=== PATIENT | female | born 1985 | race Caucasian/White ===

== ENCOUNTER 2016-11-16 19:42 | Emergency (ER) | payer OTHER ==
[2016-11-16 19:59] VITALS: BP 143/92; PULSE 88; TEMP 98.1; BMI 36.5
[2016-11-16 20:40] LABS: URINE APPEARANCE CLEAR; URINE BILIRUBIN NEGATIVE (NEGATIVE); URINE BLOOD 2+ (NEGATIVE); URINE COLOR LTYELLOW; URINE GLUCOSE (UA) NEGATIVE (NEGATIVE); URINE KETONE NEGATIVE (NEGATIVE); URINE LEUK ESTERASE NEGATIVE (NEGATIVE); URINE NITRITE NEGATIVE (NEGATIVE); URINE PROTEIN NEGATIVE (NEGATIVE); URINE UROBILINOGEN NEGATIVE mg/dL (0.2-1.0)
[2016-11-16 20:54] LABS: URINE MUCUS RARE; URINE RBC <1 /hpf (0-3)
--- NOTE | 2016-11-16 21:25 | PDOC ---
History of Present Illness - General History Source: Patient Exam Limitations: No Limitations - History of Present Illness Initial Comments: 11/16/16 21:36 The patient is a 31 year old female, with a significant past medical history of Kidney stones, Anxiety, depression who presents to the emergency department with lower abdominal and back pain for the past day. Patient reports crampy abdominal pain with no associated symptoms. Patient reports to taking several urine tests with positive and negative results. Patient also reports vaginal bleeding. Patient denies taking any pain medications for relief. She denies chest pain, headache or dizziness. She denies fever, chills, nausea, vomit, diarrhea or constipation. She denies dysuria, frequency, urgency or hematuria. Allergies: NKA Past surgical history: C section Social history: None PCP: Amira Michael <Marietta Kapadia - Last Filed: 11/16/16 21:36> - General History Source: Patient <Juan CarlosRomario escalante - Last Filed: 11/17/16 00:07> - General Chief Complaint: Pain Stated Complaint: VAGINAL BLEEDING Time Seen by Provider: 11/16/16 21:24 Past History <Marietta Kapadia - Last Filed: 11/16/16 21:36> - Past Medical History Anemia: No Asthma: No Cancer: No Cardiac Disorders: No CVA: No COPD: No CHF: No Dementia: No Diabetes: No GI Disorders: No Disorders: Yes (KIDNEY STONES) HTN: No Hypercholesterolemia: No Liver Disease: No Psychiatric Problems: Yes (Depression, anxiety) Seizures: No Thyroid Disease: No - Surgical History Abdominal Surgery: No - Reproductive History (#): 4 Para: 3 Therapeutic (s) & number: No - Immunization History Immunization Up to Date: No - Suicide/Smoking/Psychosocial Hx Smoking Status: No Smoking History: Never smoked Have you smoked in the past 12 months: No Number of Cigarettes Smoked Daily: 0 Information on smoking cessation initiated: No Hx Alcohol Use: No Drug/Substance Use Hx: No Substance Use Type: None Hx Substance Use Treatment: No <Romario Lee - Last Filed: 11/17/16 00:07> - Past Medical History Allergies/Adverse Reactions: Allergies Allergy/AdvReac Type Severity Reaction Status Date / Time No Known Drug Allergies Allergy Verified 11/16/16 19:55 Home Medications: Ambulatory Orders Bupropion HCl [Wellbutrin -] 150 mg PO DAILY 01/17/15 Acetaminophen W/ Codeine #3 [Tylenol # 3 -] 1 tab PO Q6H #20 tablet 01/20/15 Antibiotic(Not Sure Of Name) PO BID 01/20/15 Review of Systems - Review of Systems Able to Perform ROS?: Yes Comments:: 11/16/16 21:36 GENERAL/CONSTITUTIONAL: No fever or chills. No weakness. HEAD, EYES, EARS, NOSE AND THROAT: No change in vision. No ear pain or discharge. No sore throat. GASTROINTESTINAL: No nausea, vomiting, diarrhea or constipation. GENITOURINARY: +lower abdominal pain. No dysuria, frequency, or change in urination. CARDIOVASCULAR: No chest pain or shortness of breath. RESPIRATORY: No cough, wheezing, or hemoptysis. MUSCULOSKELETAL: No joint or muscle swelling or pain. No neck pain. + back pain. SKIN: No rash NEUROLOGIC: No headache, vertigo, loss of consciousness, or change in strength/ sensation. ENDOCRINE: No increased thirst. No abnormal weight change. HEMATOLOGIC/LYMPHATIC: No anemia, easy bleeding, or history of blood clots. ALLERGIC/IMMUNOLOGIC: No hives or skin allergy. <Marietta Kapadia - Last Filed: 11/16/16 21:36> *Physical Exam - Vital Signs Last Vital Signs Temp Pulse Resp BP Pulse Ox 98.1 F 88 19 143/92 100 11/16/16 19:55 11/16/16 19:55 11/16/16 19:55 11/16/16 19:55 11/16/16 19:55 - Physical Exam Comments: 11/16/16 21:36 GENERAL: Awake, alert, and fully oriented, in no acute distress HEAD: No signs of trauma EYES: PERRLA, EOMI, sclera anicteric, conjunctiva clear ENT: Auricles normal inspection, hearing grossly normal, nares patent, oropharynx clear without exudates. Moist mucosa NECK: Normal ROM, supple, no lymphadenopathy, JVD, or masses LUNGS: Breath sounds equal, clear to auscultation bilaterally. No wheezes, and no crackles HEART: Regular rate and rhythm, normal S1 and S2, no murmurs, rubs or gallops ABDOMEN: +suprapubic tenderness. Soft, normoactive bowel sounds. No guarding, no rebound. No masses EXTREMITIES: Normal range of motion, no edema. No clubbing or cyanosis. No cords, erythema, or tenderness NEUROLOGICAL: Cranial nerves II through XII grossly intact. Normal speech, normal gait SKIN: Warm, Dry, normal turgor, no rashes or lesions noted. <Marietta Kapadia - Last Filed: 11/16/16 21:36> - Vital Signs Last Vital Signs Temp Pulse Resp BP Pulse Ox 98.1 F 88 19 143/92 100 11/16/16 19:55 11/16/16 19:55 11/16/16 19:55 11/16/16 19:55 11/16/16 19:55 <Romario Lee - Last Filed: 11/17/16 00:07> ED Treatment Course - ADDITIONAL ORDERS Additional order review: Laboratory Results 11/16/16 20:10 Urine Color Ltyellow Urine Appearance Clear Urine pH 6.0 Urine Protein Negative Urine Glucose (UA) Negative Urine Ketones Negative Urine Blood 2+ H Urine Nitrite Negative Urine Bilirubin Negative Urine Urobilinogen Negative Urine RBC <1 Urine WBC None Ur Epithelial Cells Rare Urine Mucus Rare Urine HCG, Qual Negative <Marietta Kapadia - Last Filed: 11/16/16 21:36> - LABORATORY CBC & Chemistry Diagram: 11/16/16 21:50 11/16/16 21:50 - ADDITIONAL ORDERS Additional order review: Laboratory Results 11/16/16 20:10 Urine Color Ltyellow Urine Appearance Clear Urine pH 6.0 Urine Protein Negative Urine Glucose (UA) Negative Urine Ketones Negative Urine Blood 2+ H Urine Nitrite Negative Urine Bilirubin Negative Urine Urobilinogen Negative Urine RBC <1 Urine WBC None Ur Epithelial Cells Rare Urine Mucus Rare Urine HCG, Qual Negative <Romario Lee - Last Filed: 11/17/16 00:07> Medical Decision Making - Medical Decision Making 11/17/16 00:06 Dr. Lee: The scribe's documentation has been prepared under my direction and personally reviewed by me in its entirery. I confirm that the note above accurately reflects all work, treatment, procedures, and medical decision making performed by me. <Romario Lee - Last Filed: 11/17/16 00:07> *DC/Admit/Observation/Transfer - Attestations Scribe Attestion: 11/16/16 21:36 Documentation prepared by Marietta Kapadia, acting as medical records auditor for Romario Lee DO. <Mairetta Kapadia - Last Filed: 11/16/16 21:36> - Discharge Dispostion Admit: No <Romario Lee - Last Filed: 11/17/16 00:07> Diagnosis at time of Disposition: Vaginal bleeding Qualifiers: Weeks of gestation: less than 8 weeks Qualified Code(s): Z3A.01 - Less than 8 weeks gestation of - Discharge Dispostion Disposition: HOME Condition at time of disposition: Stable - Referrals Referrals: Amira Michael MD [Primary Care Provider] - Latrice Sheriff MD [Staff Physician] - - Patient Instructions Printed Discharge Instructions: Medications and Additional Instructions: Please follow up with your house worker to continue evaluating
[2016-11-16] MEDS ORDERED: ACETAMINOPHEN 325 MG TABLET (FP) PO ONE (21:30)
[2016-11-16] MEDS ORDERED: ACETAMINOPHEN 325 MG TABLET (FP) ONE (21:36)
[2016-11-16 21:55] LABS: EOSINOPHIL 4.8 % (0-4.5); MCH 26.5 pg (25.7-33.7); MCHC 33.1 g/dl (32.0-36.0); MEAN CELL VOLUME 80.1 fl (80-96); MEAN PLT VOLUME 7.5 fl (7.5-11.1); NEUTROPHILS 58.2 % (42.8-82.8); PLATELET COUNT 307 K/MM3 (134-434); RDW 14.3 % (11.6-15.6); WHITE BLOOD COUNT 11.6 K/mm3 (4.0-10.0)
[2016-11-16 22:26] LABS: ANION GAP 8 (8-16); CO2 22 mmol/L (21-32); CREATININE 0.8 mg/dL (0.55-1.02); GLUCOSE,RANDOM 84 mg/dL (74-106)
== END 2016-11-16 23:45 | disposition home or self-care (01) ==
LOC: JER 19:42
DX: O20.8 Other hemorrhage in early pregnancy (principal); Z3A.01 Less than 8 weeks gestation of pregnancy
CPT/HCPCS: 36415; 76817-TC; 80048; 81003; 81015; 84702; 84703; 85025; 87086; 99282-25

== ENCOUNTER 2016-11-18 17:18 | Emergency (ER) | payer OTHER ==
[2016-11-18 17:22] VITALS: BMI 32.8
--- NOTE | 2016-11-18 17:37 | PDOC ---
History of Present Illness - General History Source: Patient Exam Limitations: No Limitations - History of Present Illness Travel History: No Initial Comments: 11/18/16 17:37 31 yr female presents with heavy vaginal bleeding and intermittent cramping seen in ER 11/16/16 for low back and abd pain. Pt states this am bleeding has increased. LMP 10/12/16 . 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: 11/18/16 17:39 <Lynette Wang - Last Filed: 11/18/16 18:49> <Rosalind Gil - Last Filed: 11/18/16 20:00> - General Chief Complaint: Vaginal Bleeding Stated Complaint: VAGINAL BLEEDING ()LMP 10/12 Time Seen by Provider: 11/18/16 17:28 Past History - Past Medical History Anemia: No Asthma: No Cancer: No Cardiac Disorders: No CVA: No COPD: No CHF: No Dementia: No Diabetes: No GI Disorders: No Disorders: Yes (KIDNEY STONES) HTN: No Hypercholesterolemia: No Liver Disease: No Psychiatric Problems: Yes (Depression, anxiety) Seizures: No Thyroid Disease: No Other medical history: OBESITY - Surgical History Abdominal Surgery: No - Reproductive History LMP Normal: (10/12/16 ) Is Patient Now?: Yes (#): 5 Para: 4 Cervical CA: No Dysfunctional Uterine Bleeding: No Ectopic : No Endometrial CA: No Endometriosis: No Ovarian CA: No PID: No Polycystic Ovaries: No Therapeutic (s) & number: No Tubal Ligation: No Uterine Fibroids: No Oophorectomy: No - Immunization History Immunization Up to Date: No - Suicide/Smoking/Psychosocial Hx Smoking Status: No Smoking History: Never smoked Have you smoked in the past 12 months: No Number of Cigarettes Smoked Daily: 0 Information on smoking cessation initiated: No Hx Alcohol Use: No Drug/Substance Use Hx: No Substance Use Type: None Hx Substance Use Treatment: No <Lynette Wang - Last Filed: 11/18/16 18:49> <Rosalind Gil - Last Filed: 11/18/16 20:00> - Past Medical History Allergies/Adverse Reactions: Allergies Allergy/AdvReac Type Severity Reaction Status Date / Time No Known Drug Allergies Allergy Verified 11/18/16 17:22 Home Medications: Ambulatory Orders Cephalexin Monohydrate [Keflex -] 500 mg PO BID #14 capsule 11/18/16 Abd/GI Specific PMHX - Complaint Specific PMHX GI Ulcer Disease: No <Lynette Wang - Last Filed: 11/18/16 18:49> Review of Systems - Review of Systems Able to Perform ROS?: Yes Is the patient limited Nepali proficient: No Constitutional: No: Symptoms Reported HEENTM: No: Symptoms Reported Respiratory: No: Symptoms reported Cardiac (ROS): No: Symptoms Reported ABD/GI: No: Symptoms Reported : Yes: Other (vaginal bleeding with clots ). No: Symptoms Reported Musculoskeletal: No: Symptoms Reported Integumentary: No: Symptoms Reported Neurological: No: Symptoms reported <Lynette Wang - Last Filed: 11/18/16 18:49> *Physical Exam - Vital Signs Last Vital Signs Temp Pulse Resp BP Pulse Ox 98.3 F 100 H 18 146/78 100 11/18/16 17:21 11/18/16 17:21 11/18/16 17:11/18/16 17:21 11/18/16 17:21 - Physical Exam General Appearance: Yes: Nourished, Appropriately Dressed HEENT: positive: EOMI, DAVID, Normal ENT Inspection Neck: positive: Supple Respiratory/Chest: positive: Lungs Clear, Normal Breath Sounds, Other (holter monitor in place) Cardiovascular: positive: Regular Rhythm, Regular Rate Female Pelvic Exam: positive: vaginal bleeding Gastrointestinal/Abdominal: positive: Normal Bowel Sounds, Soft. negative: Tender Musculoskeletal: positive: Normal Inspection Extremity: positive: Normal Capillary Refill, Normal Inspection, Normal Range of Motion Integumentary: positive: Normal Color, Dry, Warm Neurologic: positive: Fully Oriented, Alert, Normal Mood/Affect, Normal Response , Motor Strength 5/5 <Lynette Wang - Last Filed: 11/18/16 18:49> - Vital Signs Last Vital Signs Temp Pulse Resp BP Pulse Ox 98.3 F 100 H 18 146/78 100 11/18/16 17:21 11/18/16 17:21 11/18/16 17:21 11/18/16 17:11/18/16 17:21 - Physical Exam Female Pelvic Exam: positive: normal external exam, cervical os closed, normal adnexa, vaginal bleeding (Moderate dark blood.), other (Possible products of conception noted outside vaginal canal, appeared at labia minor during speculum insertion.). negative: CMT, discharge, adnexal tenderness Gastrointestinal/Abdominal: positive: Normal Bowel Sounds, Soft. negative: Distended, Guarding, Rebound, Tenderness <Rosalind Gil - Last Filed: 11/18/16 20:00> ED Treatment Course - LABORATORY CBC & Chemistry Diagram: 11/18/16 18:00 - RADIOLOGY Radiology Studies Ordered: Category Date Time Status TRANSVAGINAL US PREG [US] Stat Ultrasound 11/18/16 17:28 Ordered <Lynette Wang - Last Filed: 11/18/16 18:49> - LABORATORY CBC & Chemistry Diagram: 11/18/16 18:00 - ADDITIONAL ORDERS Additional order review: Laboratory Results 11/18/16 11/18/16 11/18/16 18:19 18:00 18:00 PT with INR INR Beta HCG, Quant 4.3 Urine Color Yellow Urine Appearance Slcloudy Urine pH 5.0 Urine Protein Negative Urine Glucose (UA) Negative Urine Ketones Negative Urine Blood 3+ H Urine Nitrite Negative Urine Bilirubin Negative Urine Urobilinogen Negative Urine RBC 401 Urine WBC 45 Ur Epithelial Cells Rare Urine Mucus Rare Blood Type O POSITIVE Antibody Screen Negative 11/18/16 18:00 PT with INR 10.50 INR 0.96 Beta HCG, Quant Urine Color Urine Appearance Urine pH Urine Protein Urine Glucose (UA) Urine Ketones Urine Blood Urine Nitrite Urine Bilirubin Urine Urobilinogen Urine RBC Urine WBC Ur Epithelial Cells Urine Mucus Blood Type Antibody Screen 11/18/16 18:00 RBC 5.09 MCV 80.5 MCHC 32.6 RDW 13.9 MPV 7.8 Neutrophils % 59.8 Lymphocytes % 26.7 Monocytes % 7.8 Eosinophils % 4.5 Basophils % 1.2 - Medications Given in the ED: ED Medications Discontinued Medications Generic Name Dose Route Start Last Admin Trade Name Freq PRN Reason Stop Dose Admin Acetaminophen 650 mg 11/18/16 17:42 11/18/16 18:29 Tylenol - PO 11/18/16 17:43 650 mg ONCE ONE Administration <Rosalind Gil - Last Filed: 11/18/16 20:00> Medical Decision Making - Medical Decision Making 11/18/16 17:42 cc: heavy vaginal bleeding LMP 10/12/16 will check labs repeat US tylenol for pain pt is stable 11/18/16 18:19 11/18/16 18:49 pt endorsed to BIOMASS PRODUCTION MANAGER Miguel Gil. labs pending dispo pending. <Lynette Wang - Last Filed: 11/18/16 18:49> - Medical Decision Making 11/18/16 19:52 Patient Beta HCG levels down from 18-4. Speculum exam: Possible products of conception outside vaginal canal. Cervix os closed with moderate dark blood in canal. No abdominal pain on palpation. No CMT or Adnexa pain on bimanual exam. Very low suspicion for ectopic . Transvaginal US cancelled based on my findings. <Rosalind Gil - Last Filed: 11/18/16 20:00> *DC/Admit/Observation/Transfer <Lynette Wang - Last Filed: 11/18/16 18:49> - Discharge Dispostion Admit: No <Rosalind Gil - Last Filed: 11/18/16 20:00> Diagnosis at time of Disposition: Miscarriage - Discharge Dispostion Disposition: HOME Condition at time of disposition: Stable - Prescriptions Prescriptions: Cephalexin Monohydrate [Keflex -] 500 mg PO BID #14 capsule - Patient Instructions Printed Discharge Instructions: DI for Miscarriage Additional Instructions: Follow up with your GIS SOFTWARE DEVELOPER for further evaluation. Call to schedule appointment. Take medications as prescribed. Return if you experience severe abdominal pain, cramping with increase bleeding identified by (changing of pads hourly or sooner), if you develop fever, nausea, vomiting, or any other concerns for further evaluation. Print Language: URDU
[2016-11-18] MEDS ORDERED: ACETAMINOPHEN 325 MG TABLET (FP) PO ONE (17:42)
[2016-11-18] MEDS ORDERED: ACETAMINOPHEN 325 MG TABLET (FP) ONE (18:26)
[2016-11-18 18:27] LABS: URINE APPEARANCE SLCLOUDY; URINE BILIRUBIN NEGATIVE (NEGATIVE); URINE BLOOD 3+ (NEGATIVE); URINE COLOR YELLOW; URINE GLUCOSE (UA) NEGATIVE (NEGATIVE); URINE KETONE NEGATIVE (NEGATIVE); URINE NITRITE NEGATIVE (NEGATIVE); URINE PROTEIN NEGATIVE (NEGATIVE); URINE UROBILINOGEN NEGATIVE mg/dL (0.2-1.0)
[2016-11-18 18:28] LABS: URINE LEUK ESTERASE 1+ (NEGATIVE)
[2016-11-18 18:36] LABS: BASOPHIL 1.2 % (0-2.0); EOSINOPHIL 4.5 % (0-4.5); MCH 26.3 pg (25.7-33.7); MCHC 32.6 g/dl (32.0-36.0); MEAN CELL VOLUME 80.5 fl (80-96); MEAN PLT VOLUME 7.8 fl (7.5-11.1); NEUTROPHILS 59.8 % (42.8-82.8); PLATELET COUNT 337 K/MM3 (134-434); RDW 13.9 % (11.6-15.6); WHITE BLOOD COUNT 11.4 K/mm3 (4.0-10.0)
[2016-11-18 18:43] LABS: URINE MUCUS RARE; URINE RBC 401 /hpf (0-3); URINE WBC 45 /hpf (3-5)
[2016-11-18 18:55] LABS: INR 0.96 (0.82-1.09); PROTHROMBIN TIME (PATIENT) 10.5 SEC (9.98-11.88)
[2016-11-18] MEDS ORDERED: CEPHALEXIN MONOHYDRATE 500 MG CAPSULE (UD) PO ONE (19:55)
[2016-11-18] MEDS ORDERED: CEPHALEXIN MONOHYDRATE 250 MG CAPSULE (FP) ONE (20:14)
[2016-11-18 20:31] VITALS: BP 137/86; PULSE 86; TEMP 98.2
--- NOTE | 2016-11-22 17:24 | PATH ---
Surgical Pathology Report Patient Name: SYLVESTER PUGA [facility]. Rec. #: [id number] /Age/Gender: 1985 (Age: 31) / F Account: [id number] Location: EMERGENCY ROOM Taken: 11/18/2016 Received: 11/19/2016 Reported: 11/22/2016 Physicians: Nabeel Lovett M.D. Specimen(s) Received PRODUCTS OF CONCEPTION Clinical History Vaginal bleeding Final Diagnosis UTERINE CONTENTS, EVACUATION: DECIDUA AND HYPERSECRETORY ENDOMETRIUM. NO CHORIONIC VILLI OR TROPHOBLASTS IDENTIFIED. Comment: This report was faxed to Dr. Gan's office on 11/22/2016. Electronically Signed Bryon Palomares M.D. Gross Description Received in formalin, labeled with the patient's name and indicated on her physician to be products of conception, is a 2.7 x 1.7 x 0.2 cm aggregate of trevino brown soft tissue fragments. Possible villous tissue is identified. No somatic tissue is identified. The specimen is entirely submitted in one cassette. /11/19/2016 [facility]11/19/2016
== END 2016-11-18 20:25 | disposition home or self-care (01) ==
LOC: JER 17:18
DX: O26.891 Other specified pregnancy related conditions, first trimester (principal); O02.1 Missed abortion; Z3A.01 Less than 8 weeks gestation of pregnancy
CPT/HCPCS: 36415; 81003; 81015; 84702; 84703; 85025; 85610; 86850; 86900; 86901; 88305-TC; 99282-25

== ENCOUNTER 2018-04-24 15:07 | Emergency (ER) | payer OTHER ==
[2018-04-24 15:21] VITALS: BP 133/79; PULSE 94; TEMP 98.1; BMI 38.4
--- NOTE | 2018-04-24 15:22 | PDOC ---
Rapid Medical Evaluation Chief Complaint: ,Possible Time Seen by Provider: 04/24/18 15:21 Medical Evaluation: Allergies Allergy/AdvReac Type Severity Reaction Status Date / Time No Known Drug Allergies Allergy Verified 11/18/16 17:22 Vital Signs Temp Pulse Resp BP Pulse Ox 98.1 F 94 H 18 133/79 100 04/24/18 15:19 04/24/18 15:19 04/24/18 15:19 04/24/18 15:19 04/24/18 15:19 04/24/18 15:21 I have performed a brief in-person evaluation of this patient. The patient presents with a chief complaint of: vaginal bleeding since this am. Patient reports positive last week, states no clots or dizziness Pertinent physical exam findings: NAD lungs clear mild tenderness in lower abdomen I have ordered the following: labs The patient will proceed to the ED for further evaluation. Discharge Disposition - Discharge Dispostion Condition at time of disposition: Stable - Referrals - Patient Instructions - Post Discharge Activity
[2018-04-24 15:53] LABS: HEMATOCRIT 37.8 % (32.4-45.2); MCH 27.6 pg (25.7-33.7); MCHC 34.4 g/dl (32.0-36.0); MEAN CELL VOLUME 80.4 fl (80-96); MEAN PLT VOLUME 7.7 fl (7.5-11.1); PLATELET COUNT 272 K/MM3 (134-434); WHITE BLOOD COUNT 11.8 K/mm3 (4.0-10.0)
--- NOTE | 2018-04-24 16:47 | PDOC ---
History of Present Illness - General Chief Complaint: ,Possible Stated Complaint: /BLEEDING Time Seen by Provider: 04/24/18 15:21 - History of Present Illness Initial Comments: 32 year old [id number] currently 5 weeks (complicated because she had an IUD in place) by LMP (03/11/18) with evaluation in the setting of vaginal bleeding. She received an US and evaluation 2 weeks prior which demonstrate an IUP. She has had vaginal spotting for the past week with more bleeding today. She had an elective in November for an unwanted . Denies nausea, vomiting, diarrhea, syncope, chest pain, weakness or other symptoms. 04/24/18 17:21 Past History - Past Medical History Allergies/Adverse Reactions: Allergies Allergy/AdvReac Type Severity Reaction Status Date / Time No Known Drug Allergies Allergy Verified 11/18/16 17:22 Home Medications: Ambulatory Orders Cephalexin Monohydrate [Keflex -] 500 mg PO BID #14 capsule 11/18/16 Anemia: No Asthma: No Cancer: No Cardiac Disorders: No CVA: No COPD: No CHF: No Dementia: No Diabetes: No GI Disorders: No Disorders: Yes (KIDNEY STONES) HTN: No Hypercholesterolemia: No Liver Disease: No Psychiatric Problems: Yes (Depression, anxiety) Seizures: No Thyroid Disease: No - Surgical History Abdominal Surgery: No - Reproductive History (#): 5 Para: 4 Cervical CA: No Dysfunctional Uterine Bleeding: No Ectopic : No Endometrial CA: No Endometriosis: No Ovarian CA: No PID: No Polycystic Ovaries: No Therapeutic (s) & number: No Tubal Ligation: No Uterine Fibroids: No Oophorectomy: No - Immunization History Immunization Up to Date: No - Suicide/Smoking/Psychosocial Hx Smoking Status: No Smoking History: Never smoked Have you smoked in the past 12 months: No Number of Cigarettes Smoked Daily: 0 Information on smoking cessation initiated: No Hx Alcohol Use: No Drug/Substance Use Hx: No Substance Use Type: None Hx Substance Use Treatment: No Review of Systems - Review of Systems Constitutional: No: Chills, Diaphoresis, Fever, Loss of Appetite HEENTM: No: Blurred Vision, Tearing Respiratory: No: Cough, Orthopnea, Shortness of Breath Cardiac (ROS): No: Chest Pain, Edema ABD/GI: No: Diarrhea, Nausea, Vomiting : No: Dysuria, Discharge, Hematuria Musculoskeletal: No: Back Pain, Muscle Weakness Integumentary: No: Bruising, Lesions, Lumps Neurological: No: Headache, Numbness, Paresthesia Psychiatric: No: Anxiety, Depression Hematologic/Lymphatic: No: Blood Clots, Easy Bleeding *Physical Exam - Vital Signs Last Vital Signs Temp Pulse Resp BP Pulse Ox 98.1 F 94 H 18 133/79 100 04/24/18 15:19 04/24/18 15:19 04/24/18 15:19 04/24/18 15:19 04/24/18 15:19 - Physical Exam General Appearance: Yes: Nourished, Appropriately Dressed. No: Apparent Distress HEENT: positive: EOMI, DAVID, Normal ENT Inspection, Normal Voice Neck: positive: Trachea midline, Normal Thyroid, Supple. negative: Tender, Rigid Respiratory/Chest: positive: Lungs Clear, Normal Breath Sounds. negative: Chest Tender, Respiratory Distress, Accessory Muscle Use Cardiovascular: positive: Regular Rhythm, Regular Rate Female Pelvic Exam: positive: cervical os closed, normal adnexa, normal size ovaries, vaginal bleeding. negative: normal external exam (blood at the edge of the external vagina), CMT, discharge, lesions, adnexal tenderness Gastrointestinal/Abdominal: positive: Normal Bowel Sounds, Tender (suprapubic tenderness), Flat, Soft Lymphatic: negative: Adenopathy, Tenderness Musculoskeletal: positive: Normal Inspection. negative: Decreased Range of Motion Extremity: positive: Normal Capillary Refill, Normal Inspection, Normal Range of Motion. negative: Tender Integumentary: positive: Normal Color, Dry, Warm Neurologic: positive: Fully Oriented, Alert, Normal Mood/Affect, Normal Response , Motor Strength 5/5 Moderate Sedation - Procedure Monitoring Vital Signs: Procedure Monitoring Vital Signs Temperature 98.1 F 04/24/18 15:19 Pulse Rate 94 H 04/24/18 15:19 Respiratory Rate 18 04/24/18 15:19 Blood Pressure 133/79 04/24/18 15:19 O2 Sat by Pulse Oximetry (%) 100 04/24/18 15:19 ED Treatment Course - LABORATORY CBC & Chemistry Diagram: 04/24/18 15:31 - ADDITIONAL ORDERS Additional order review: Laboratory Results 04/24/18 04/24/18 15:30 15:30 Urine HCG, Qual Positive Blood Type O POSITIVE Antibody Screen Negative 04/24/18 15:31 RBC 4.70 MCV 80.4 MCHC 34.4 RDW 15.0 MPV 7.7 Medical Decision Making - Medical Decision Making 32 year old female with vaginal bleeding and positive TVUS for two weeks prior despite having an IUD in place. IUD was taken out and patient here for vaginal spotting. HCG 14K and IUD GS + YS on TVUS. Unfrotuantely UA was never sent so UA will be sent and we will call the patient back for results. Patient OK with this. She has an ENTRY LEVEL SOFTWARE ENGINEER follow up tomorrow as well. 04/24/18 19:52 *DC/Admit/Observation/Transfer Diagnosis at time of Disposition: Threatened - Discharge Dispostion Disposition: HOME Condition at time of disposition: Improved Decision to Admit order: No - Referrals Referrals: Taco Balbuena MD [Primary Care Provider] - - Patient Instructions Printed Discharge Instructions: DI for Threatened Additional Instructions: Please follow up with your tractor mechanic apprentice tomorrow. Please return to the ED if you have new or worsening symptoms. - Post Discharge Activity
--- NOTE | 2018-04-24 18:10 | PDOC ---
Attending Attestation - Physicial Exam PE: 04/24/18 20:02 GENERAL: Well-appearing, well-nourished. No apparent distress. HEENT: Normocephalic, atraumatic. PERRL, EOM intact. CARDIOVASCULAR: Normal S1, S2. Regular rate and rhythm. PULMONARY: Clear to auscultation bilaterally. ABDOMEN: Soft, non-distended, non-tender. Pelvic: Refer to resident exam. EXTREMITIES: Normal ROM in all four extremities. No gross deformities. SKIN: Warm, dry. No rash NEUROLOGICAL: No focal neurological deficits. <Carisa Becerra - Last Filed: 04/24/18 20:02> - Resident Resident Name: Svitlana Gamez - ED Attending Attestation I have performed the following: I have examined & evaluated the patient, The case was reviewed & discussed with the resident, I agree w/resident's findings & plan, Exceptions are as noted - HPI HPI: 04/24/18 18:09 this 32 yo female p/w vaginal bleeding and reports being about 5 weeks pregnanat About 2 weeks ago she found out about the and had her uterine IUD removed, she now p/w vaginal bleeding - Medical Decision Making 04/24/18 20:25 pelvic US intrauterine gestational sac, 6 weeks , no pole,no cardiac activity bhcg 14,ooo o positive <Mirian Gunn - Last Filed: 04/24/18 20:26> Attestations - Attestations 04/24/18 20:03 Documentation prepared by Carisa Becerra, acting as chief medical technologist for Mirian Gunn MD. <Carisa Becerra - Last Filed: 04/24/18 20:02>
[2018-04-24 20:52] LABS: URINE APPEARANCE CLEAR; URINE BILIRUBIN NEGATIVE (<2.0 mg/dL); URINE COLOR YELLOW; URINE GLUCOSE (UA) NEGATIVE (NEGATIVE); URINE KETONE NEGATIVE (NEGATIVE); URINE LEUK ESTERASE TRACE (NEGATIVE); URINE NITRITE NEGATIVE (NEGATIVE); URINE PROTEIN 1+ (NEGATIVE); URINE UROBILINOGEN NEGATIVE mg/dL (0.2-1.0)
[2018-04-24 20:57] LABS: EPI CELLS RARE /HPF (FEW); URINE MUCUS RARE
--- NOTE | 2018-04-24 21:10 | PDOC ---
*Physical Exam - Vital Signs Last Vital Signs Temp Pulse Resp BP Pulse Ox 98.1 F 94 H 18 133/79 100 04/24/18 15:19 04/24/18 15:19 04/24/18 15:19 04/24/18 15:19 04/24/18 15:19 ED Treatment Course - LABORATORY CBC & Chemistry Diagram: 04/24/18 15:31 - ADDITIONAL ORDERS Additional order review: Laboratory Results 04/24/18 04/24/18 04/24/18 20:05 15:30 15:30 Beta HCG, Quant 46516.2 Urine Color Yellow Urine Appearance Clear Urine pH 5.0 Ur Specific [place] 1.021 Urine Protein 1+ H Urine Glucose (UA) Negative Urine Ketones Negative Urine Blood 3+ H Urine Nitrite Negative Urine Bilirubin Negative Urine Urobilinogen Negative Ur Leukocyte Esterase Trace Urine WBC (Auto) 16 Urine RBC (Auto) 52 Ur Epithelial Cells Rare Urine Mucus Rare Urine HCG, Qual Blood Type O POSITIVE Antibody Screen Negative 04/24/18 15:30 Beta HCG, Quant Urine Color Urine Appearance Urine pH Ur Specific [place] Urine Protein Urine Glucose (UA) Urine Ketones Urine Blood Urine Nitrite Urine Bilirubin Urine Urobilinogen Ur Leukocyte Esterase Urine WBC (Auto) Urine RBC (Auto) Ur Epithelial Cells Urine Mucus Urine HCG, Qual Positive Blood Type Antibody Screen 04/24/18 15:31 RBC 4.70 MCV 80.4 MCHC 34.4 RDW 15.0 MPV 7.7 - RADIOLOGY Radiology Studies Ordered: Category Date Time Status TRANSVAGINAL US PREG [US] Stat Ultrasound 04/24/18 16:57 Completed Medical Decision Making - Medical Decision Making Ua came back without sign of obvious infection. 04/24/18 21:10 *DC/Admit/Observation/Transfer Diagnosis at time of Disposition: Threatened - Discharge Dispostion Disposition: HOME Condition at time of disposition: Improved - Referrals Schedule a call back: Urine culture Referrals: Taco Balbuena MD [Primary Care Provider] - - Patient Instructions Printed Discharge Instructions: DI for Threatened Additional Instructions: Please follow up with your moving picture producer tomorrow. Please return to the ED if you have new or worsening symptoms. - Post Discharge Activity
== END 2018-04-24 20:53 | disposition home or self-care (01) ==
LOC: JER 15:07
DX: O26.891 Other specified pregnancy related conditions, first trimester (principal); O20.0 Threatened abortion; Z3A.01 Less than 8 weeks gestation of pregnancy
CPT/HCPCS: 36415; 76817-TC; 81003; 81015; 84702; 84703; 85027; 86850; 86900; 86901; 87086; 99281-25

== ENCOUNTER 2020-08-08 21:45 | Emergency (ER) | payer OTHER ==
[2020-08-08 21:52] VITALS: TEMP 98.7; BMI 39.3
[2020-08-08 23:10] LABS: BASO % 1.3 % (0-2.0); EOS % 2.9 % (0-4.5); HEMATOCRIT 38.6 % (32.4-45.2); LYMPH % 26.3 % (8-40); MCH 26.8 pg (25.7-33.7); MCHC 33.7 g/dl (32.0-36.0); MEAN CELL VOLUME 79.6 fl (80-96); MEAN PLT VOLUME 7.3 fl (7.5-11.1); MONO % 7.7 % (3.8-10.2); NEUT % 61.8 % (42.8-82.8); PLATELET COUNT 290 K/MM3 (134-434); RBC 4.85 M/mm3 (3.60-5.2); RDW 14.5 % (11.6-15.6); WHITE BLOOD COUNT 13.1 K/mm3 (4.0-10.0)
[2020-08-08 23:30] LABS: CALCIUM 9.4 mg/dL (8.5-10.1)
[2020-08-08 23:31] LABS: ALBUMIN 3.6 g/dl (3.4-5.0); BLOOD UREA NITROGEN 11.1 mg/dL (7-18)
[2020-08-08 23:34] LABS: CREATININE 0.9 mg/dL (0.55-1.3)
[2020-08-08 23:35] LABS: BILIRUBIN,TOTAL 0.3 mg/dL (0.2-1); TOT PROT 7.3 g/dl (6.4-8.2)
[2020-08-08 23:45] LABS: EPI CELLS 25 /uL (0-25.1); HYALINE CASTS 2 /uL (0-3.1); URINE APPEARANCE CLEAR; URINE BACTERIA 4432 /uL (0-1359); URINE BILIRUBIN NEGATIVE (NEGATIVE); URINE COLOR YELLOW; URINE GLUCOSE (UA) NEGATIVE (NEGATIVE); URINE KETONE NEGATIVE (NEGATIVE); URINE LEUK ESTERASE TRACE (NEGATIVE); URINE NITRITE NEGATIVE (NEGATIVE); URINE PROTEIN NEGATIVE (NEGATIVE); URINE RBC 9 /uL (0-23.9); URINE UROBILINOGEN 0.2 mg/dL (0.2-1.0); URINE WBC 29 /uL (0-25.8)
[2020-08-08] MEDS ORDERED: CEPHALEXIN MONOHYDRATE 500 MG CAPSULE (UD) PO ONE (23:50)
[2020-08-08] MEDS ORDERED: CEPHALEXIN MONOHYDRATE 500 MG CAPSULE (UD) ONE (23:55)
[2020-08-09 00:13] VITALS: BP 132/68; PULSE 74
== END 2020-08-09 00:13 | disposition home or self-care (01) ==
LOC: JER 21:45
DX: O23.41 Unspecified infection of urinary tract in pregnancy, first trimester (principal); O23.591 Infection of other part of genital tract in pregnancy, first trimester; Z3A.00 Weeks of gestation of pregnancy not specified
CPT/HCPCS: 36415; 76801-TC; 80053; 81003; 84702; 85025; 86850; 86900; 86901; 87086; 99284-25

== ENCOUNTER 2021-02-17 12:48 | Inpatient (IN) | payer OTHER ==
[2021-02-17] MEDS ORDERED: ACETAMINOPHEN 500 MG TABLET (FP) PO ONE (13:30)
[2021-02-17] MEDS ORDERED: BETAMET ACET/BETAMET NA PH 30 MG/5 ML VIAL IM ONE (13:30)
[2021-02-17 15:07] LABS: EPI CELLS >36 /uL (0-25.1); HYALINE CASTS 0 /uL (0-3.1); URINE APPEARANCE CLEAR; URINE BACTERIA 3130 /uL (0-1359); URINE BILIRUBIN NEGATIVE (NEGATIVE); URINE COLOR YELLOW; URINE GLUCOSE (UA) NEGATIVE (NEGATIVE); URINE KETONE NEGATIVE (NEGATIVE); URINE LEUK ESTERASE 2+ (NEGATIVE); URINE NITRITE NEGATIVE (NEGATIVE); URINE PROTEIN NEGATIVE (NEGATIVE); URINE RBC 4 /uL (0-23.9); URINE UROBILINOGEN 0.2 mg/dL (0.2-1.0); URINE WBC 31 /uL (0-25.8)
[2021-02-17 15:28] LABS: HEMATOCRIT 33.9 % (32.4-45.2); HEMOGLOBIN 11.3 GM/dL (10.7-15.3); MCH 26.7 pg (25.7-33.7); MCHC 33.4 g/dl (32.0-36.0); MEAN CELL VOLUME 79.8 fl (80-96); MEAN PLT VOLUME 7.5 fl (7.5-11.1); PLATELET COUNT 271 10^3/uL (134-434); RBC 4.25 M/mm3 (3.60-5.2); RDW 15.4 % (11.6-15.6)
[2021-02-17 15:30] LABS: RETICULOCYTES 2.2 % (0.5-1.5)
[2021-02-17 15:33] LABS: INR 1.02 (0.83-1.09); PROTHROMBIN TIME (PATIENT) 11.4 SEC (9.7-13.0)
[2021-02-17 15:43] LABS: BLOOD UREA NITROGEN 9.4 mg/dL (7-18)
[2021-02-17 15:45] LABS: URIC ACID 6.9 mg/dL (2.6-7.2)
[2021-02-17 15:46] LABS: CREATININE 0.6 mg/dL (0.55-1.3)
[2021-02-17 16:00] VITALS: BMI 42.1
[2021-02-17 17:49] LABS: ANISOCYTOSIS 2+; MACROCYTOSIS 0; PLATELET ESTIMATE NORMAL; TOXIC GRANULATION 2+
[2021-02-17] MEDS ORDERED: LIGASURE IMPACT TP ONE (19:27)
[2021-02-17] MEDS ORDERED: ACETAMINOPHEN 325 MG TABLET (FP) PO PRN (19:30)
[2021-02-17] MEDS ORDERED: METHYLERGONOVINE MALEATE 0.2 MG/1 ML AMP IM PRN (19:30)
[2021-02-17] MEDS ORDERED: OXYTOCIN 20 UNITS in 0.9% NS 20 UNIT/1,000 ML INFUS.BAG IV SCH (19:30)
[2021-02-17] MEDS ORDERED: OXYTOCIN 20 UNITS in 0.9% NS 20 UNIT/1,000 ML INFUS.BAG IV ONE (19:56)
[2021-02-17] MEDS ORDERED: morphine SULFATE/PF 1 MG/2 ML (2cc Syringe - QUVA) ONE (19:56)
[2021-02-17] MEDS ORDERED: DEXAMETHASONE SOD PHOSPHATE 4 MG/1 ML VIAL ONE (21:12)
[2021-02-17] MEDS ORDERED: ONDANSETRON 4 MG/2 ML VIAL ONE (21:12)
[2021-02-17] MEDS ORDERED: OXYTOCIN 10 UNITS/ML VIAL ONE ×2 (21:13)
[2021-02-17] MEDS ORDERED: PHENYLEPHRINE HCL 10 MG/1 ML SINGLE DOSE VIAL ONE (21:13)
[2021-02-17] MEDS ORDERED: ceFAZolin SODIUM 1 GM VIAL ONE (21:13)
[2021-02-17] MEDS ORDERED: KETOROLAC TROMETHAMINE 30 MG/1 ML VIAL ONE (21:13)
[2021-02-17] MEDS ORDERED: morphine SULFATE/PF 1 MG/2 ML (2cc Syringe - QUVA) IT ONE (21:59)
[2021-02-17] MEDS ORDERED: ONDANSETRON 4 MG/2 ML VIAL IVPUSH PRN (21:59)
[2021-02-17] MEDS ORDERED: NIFEdipine E.R. 30 MG TABLET ONE (22:22)
[2021-02-17] MEDS: NIFEdipine E.R. 30 MG TABLET PO SCH (23:00)
[2021-02-17 23:06] LABS: CORD HCO3 20.1 mmHg (20-29); CORD PCO2 41.7 mmHg (30-78); CORD pH 7.301 (7.14-7.44)
[2021-02-17 23:07] LABS: CORD BASE EXCESS -5.6 mmol/L (0-2); CORD HCO3 20.8 mmHg (20-29); CORD PCO2 44.1 mmHg (30-78); CORD pH 7.292 (7.14-7.44)
[2021-02-18] MEDS: CEFAZOLIN 1 GM in DEXTROSE 5%-WATER - 50 ML IVPB SCH ×3 (05:30→20:58)
[2021-02-18] MEDS ORDERED: DEXTROSE 5%-WATER - 50 ML IVPB ONE ×3 (05:53→20:51)
[2021-02-18] MEDS ORDERED: ceFAZolin SODIUM 1 GM VIAL ONE ×3 (05:53→20:51)
[2021-02-18 07:01] LABS: BASO % 0.4 % (0-2.0); HEMATOCRIT 30.4 % (32.4-45.2); HEMOGLOBIN 10.1 GM/dL (10.7-15.3); LYMPH % 11.8 % (8-40); MCH 26.2 pg (25.7-33.7); MCHC 33.1 g/dl (32.0-36.0); MEAN CELL VOLUME 78.9 fl (80-96); MEAN PLT VOLUME 7.6 fl (7.5-11.1); MONO % 6.1 % (3.8-10.2); NEUT % 81.7 % (42.8-82.8); PLATELET COUNT 284 10^3/uL (134-434); RBC 3.85 M/mm3 (3.60-5.2); RDW 15.4 % (11.6-15.6); WHITE BLOOD COUNT 16.1 K/mm3 (4.0-10.0)
[2021-02-18] MEDS ORDERED: oxyCODONE HCL 5 MG TABLET PO PRN ×2 (07:30)
[2021-02-18] MEDS: IBUPROFEN 600 MG TABLET (FP) PO PRN ×3 (08:17→21:47)
[2021-02-18 08:28] LABS: EPI CELLS 11 /uL (0-25.1); HYALINE CASTS 2 /uL (0-3.1); URINE APPEARANCE CLEAR; URINE BACTERIA 10 /uL (0-1359); URINE BILIRUBIN NEGATIVE (NEGATIVE); URINE COLOR DK YELLOW; URINE GLUCOSE (UA) NEGATIVE (NEGATIVE); URINE KETONE 3+ (NEGATIVE); URINE LEUK ESTERASE NEGATIVE (NEGATIVE); URINE NITRITE NEGATIVE (NEGATIVE); URINE PROTEIN 1+ (NEGATIVE); URINE RBC 232 /uL (0-23.9); URINE UROBILINOGEN 0.2 mg/dL (0.2-1.0); URINE WBC 16 /uL (0-25.8)
[2021-02-18] MEDS: ENOXAPARIN NA (PORCINE) 40 MG/0.4 ML DISP.SYRIN SQ SCH (10:10)
[2021-02-18] MEDS: NIFEdipine E.R. 30 MG TABLET PO SCH ×2 (10:10→21:41)
[2021-02-18] MEDS ORDERED: BETAMET ACET/BETAMET NA PH 30 MG/5 ML VIAL IM ONE (13:30)
[2021-02-18] MEDS: SIMETHICONE 80 MG TAB.CHEW (FP) PO PRN ×2 (15:39→21:41)
[2021-02-18] MEDS ORDERED: BISACODYL 10 MG SUPP.RECT RC PRN (19:30)
[2021-02-19] MEDS: IBUPROFEN 600 MG TABLET (FP) PO PRN ×3 (06:08→21:26)
[2021-02-19 07:30] LABS: URIC ACID 6.4 mg/dL (2.6-7.2)
[2021-02-19 07:34] LABS: RETICULOCYTES 2.31 % (0.5-1.5)
[2021-02-19] MEDS: NIFEdipine E.R. 30 MG TABLET PO SCH ×2 (10:16→21:25)
[2021-02-19] MEDS: ENOXAPARIN NA (PORCINE) 40 MG/0.4 ML DISP.SYRIN SQ SCH (10:16)
[2021-02-19] MEDS: SIMETHICONE 80 MG TAB.CHEW (FP) PO PRN ×2 (10:56→21:25)
[2021-02-20] MEDS: IBUPROFEN 600 MG TABLET (FP) PO PRN ×2 (04:32→09:58)
[2021-02-20 09:16] LABS: HEMATOCRIT 30.9 % (32.4-45.2); HEMOGLOBIN 10.1 GM/dL (10.7-15.3); MCH 26.6 pg (25.7-33.7); MCHC 32.8 g/dl (32.0-36.0); MEAN CELL VOLUME 81.2 fl (80-96); PLATELET COUNT 292 10^3/uL (134-434); RDW 15.5 % (11.6-15.6); WHITE BLOOD COUNT 16.5 K/mm3 (4.0-10.0)
[2021-02-20] MEDS: SIMETHICONE 80 MG TAB.CHEW (FP) PO PRN (09:57)
[2021-02-20] MEDS: NIFEdipine E.R. 30 MG TABLET PO SCH (09:57)
[2021-02-20] MEDS: ENOXAPARIN NA (PORCINE) 40 MG/0.4 ML DISP.SYRIN SQ SCH (09:57)
[2021-02-20 10:25] VITALS: BP 138/82; PULSE 101; TEMP 97.8
[2021-02-20 10:58] LABS: ANISOCYTOSIS 2+; MACROCYTOSIS 0; PLATELET ESTIMATE NORMAL
== END 2021-02-20 13:10 | disposition home or self-care (01) | DRG 540 ==
LOC: JLDR 12:48 → J3W 23:51
PROVIDERS: ADMIT Obstetrics & Gynecology; ATTEND Obstetrics & Gynecology
PROC: 10D00Z1 Extraction of Products of Conception, Low, Open Approach (ICD-10-PCS; principal; 2021-02-17)
PROC: 0UB70ZZ Excision of Bilateral Fallopian Tubes, Open Approach (ICD-10-PCS; 2021-02-17)
PROC: 0UB90ZZ Excision of Uterus, Open Approach (ICD-10-PCS; 2021-02-17)
DX: O14.04 Mild to moderate pre-eclampsia, complicating childbirth (principal); O60.14X0 Preterm labor third trimester with preterm delivery third trimester, not applicable or unspecified; O99.213 Obesity complicating pregnancy, third trimester; E66.01 Morbid (severe) obesity due to excess calories; Z3A.34 34 weeks gestation of pregnancy; O34.211 Maternal care for low transverse scar from previous cesarean delivery; N85.8 Other specified noninflammatory disorders of uterus; Z30.2 Encounter for sterilization; O34.13 Maternal care for benign tumor of corpus uteri, third trimester; D25.9 Leiomyoma of uterus, unspecified; O13.4 Gestational [pregnancy-induced] hypertension without significant proteinuria, complicating childbirth; Z37.0 Single live birth
CPT/HCPCS: 36415; 36600; 80048; 81003; 82803; 82977; 83010; 84450; 84460; 84550; 85025; 85032; 85045; 85610; 85730; 86780; 86850; 86900; 86901; 86922; 96372; C9803; U0003; U0005